=== PATIENT | male | born 1960 | race Caucasian/White ===

== ENCOUNTER 2019-04-29 22:38 | Inpatient (IN) | payer MEDICAID ==
--- NOTE | 2019-04-29 23:18 | ED Physician Chart ---
ED Chief Complaint/HPI - Patient Information Date Seen:: 04/29/19 Time Seen:: 23:13 Chief Complaint:: Dysuria and right flank pain History of Present Illness:: 58 yo male with history of bilateral flank pain and subsequent passing of a kidney stone 5 months ago. Pt did not seek medical treatment at that time. About 3 days ago, pt developed urinary burning sensation, urinary frequency, right scrotal pain, redness and swelling. Pt noticed pink urine intermittently. Pt also had fever and chills. Allergies:: Allergies Allergy/AdvReac Type Severity Reaction Status Date / Time No Known Allergies Allergy Verified 04/29/19 22:51 Vitals:: Vital Signs - 8 hr 04/29/19 22:40 Temp 98.4 F HR 105 RR 18 BP 105/75 O2 Sat % 97 ED Review of Systems - Review of Systems General/Constitutional: Fever, Chills Skin: No rash Head: No headache Eyes: No pain ENT: No nasal drainage Neck: No neck pain Cardio Vascular: No chest pain Pulmonary: No SOB GI: Nausea, No vomiting G/U: Dysuria, Frequency, Hematuria Musculoskeletal: No bone or joint pain Neurological: No focal symptoms ED Past Medical History - Past Medical History Past Medical History: Other (Kidney stone) Social History: Smoker, No Alcohol, Illicit Drug Use (majuana, methamphetamine) Surgical History: Appendectomy Family Medical History - Family Member Mother History Unknown: Yes ED Physical Exam - Physical Examination General/Constitutional: Awake, Alert Head: Atraumatic Eyes: PERRL, EOMI Skin: No ecchymosis ENMT: Nasal exam nl Neck: No nuchal rigidity Respiratory: Clear to Auscultation Cardio Vascular: RRR, No murmur, gallop, rubs, NL S1 S2 Other GI comments:: RLQ tenderness : No CVA tenderness Other comments:: Swelling, erythema and tenderness of right scrotum Extremities: normal strength in all extremities Neuro/Psych: No focal deficits ED Labs/Radiology/EKG Results - Lab Results Results: Laboratory Last Values WBC 20.2 Th/cmm (4.8-10.8) H* 04/29/19 23:00 RBC 4.70 Mil/cmm (4.30-5.70) 04/29/19 23:00 Hgb 13.6 gm/dL (12-16) 04/29/19 23:00 Hct 40.4 % (41.0-60) L 04/29/19 23:00 MCV 86.0 fl (80-99) 04/29/19 23:00 MCH 28.9 pg (26.0-30.0) 04/29/19 23: MCHC Differential 33.6 pg (28.0-36.0) 04/29/19 23:00 RDW 13.3 % (11.5-20.0) 04/29/19: Plt Count 746 Th/cmm (150-400) H 04/29/19 23:00 MPV 8.2 fl 04/29/19 23:00 Add Manual Diff YES 04/29/19: Band Neutrophils % 1 % (0-10) 04/29/19: Neutrophils (Manual) 76 % (40-80) 04/29/19 23:00 Lymphocytes 19 % (20-50) L 04/29/19: Monocytes 4 % (2-10) 04/29/19 23:00 Platelet Estimate INCREASED PLATELETS (NORMAL) 04/29/19 23:00 Sodium 133 mEq/L (136-145) L 04/29/19 23:00 Potassium 4.4 mEq/L (3.5-5.1) 04/29/19 23:00 Chloride 95 mEq/L (98-107) L 04/29/19 23:00 Carbon Dioxide 29.2 mEq/L (21.0-31.0) 04/29/19 23: Anion Gap 13.2 (7.0-16.0) 04/29/19 23: BUN 13 mg/dL (7-25) 04/29/19 23: Creatinine 1.2 mg/dL (0.7-1.3) 04/29/19 23:00 Est GFR ( Amer) > 60.0 ml/min (>90) 04/29/19: Est GFR (Non-Af Amer) > 60.0 ml/min 04/29/19 23: BUN/Creatinine Ratio 10.8 04/29/19 23: Glucose 105 mg/dL (70-105) 04/29/19 23: Whole Bld Lactic Acid 1.39 mmol/L (0.60-1.99) 04/29/19 23:50 Calcium 9.2 mg/dL (8.6-10.3) 04/29/19 23:00 Total Bilirubin 0.3 mg/dL (0.3-1.0) 04/29/19 23:00 AST 18 U/L (13-39) 04/29/19 23:00 ALT 24 U/L (7-52) 04/29/19 23:00 Alkaline Phosphatase 116 U/L (34-104) H 04/29/19 23:00 Total Protein 7.6 gm/dL (6.0-8.3) 04/29/19 23:00 Albumin 3.3 gm/dL (4.2-5.5) L 04/29/19 23:00 Globulin 4.3 gm/dL 04/29/19 23:00 Albumin/Globulin Ratio 0.8 (1.0-1.8) L 04/29/19 23:00 Urine Source MIDSTREAM 04/29/19 22:40 Urine Color YELLOW 04/29/19 22:40 Urine Clarity HAZY (CLEAR) 04/29/19 22:40 Urine pH 6.5 (4.6 - 8.0) 04/29/19 22:40 Ur Specific [place] 1.010 (1.005-1.030) 04/29/19 22:40 Urine Protein 30 mg/dL (NEGATIVE) H 04/29/19 22:40 Urine Glucose (UA) NEGATIVE mg/dL (NEGATIVE) 04/29/19 22:40 Urine Ketones NEGATIVE mg/dL (NEGATIVE) 04/29/19 22:40 Urine Blood LARGE (NEGATIVE) H 04/29/19 22:40 Urine Nitrate POSITIVE (NEGATIVE) H 04/29/19 22:40 Urine Bilirubin NEGATIVE (NEGATIVE) 04/29/19 22:40 Urine Urobilinogen 4.0 E.U./dL (0.2 - 1.0) H 04/29/19 22:40 Ur Leukocyte Esterase LARGE (NEGATIVE) H 04/29/19 22:40 Urine RBC 2-5 /hpf (0-5) H 04/29/19 22:40 Urine WBC 50-100 /hpf (0-5) H 04/29/19 22:40 Ur Epithelial Cells RARE /lpf (FEW) 04/29/19 22:40 Urine Bacteria MANY /hpf (NONE SEEN) H 04/29/19 22:40 Urine Opiates Screen NEGATIVE (NEGATIVE) 04/29/19 22:40 Urine Methadone Screen NEGATIVE (NEGATIVE) 04/29/19 22:40 Ur Barbiturates Screen NEGATIVE (NEGATIVE) 04/29/19 22:40 Ur Tricyclics Screen NEGATIVE (NEGATIVE) 04/29/19 22:40 Ur Phencyclidine Scrn NEGATIVE (NEGATIVE) 04/29/19 22:40 Amphetamines Screen POSITIVE (NEGATIVE) H 04/29/19 22:40 U Methamphetamines Scrn POSITIVE (NEGATIVE) H 04/29/19 22:40 U Benzodiazepines Scrn NEGATIVE (NEGATIVE) 04/29/19 22:40 U Cocaine Metab Screen NEGATIVE (NEGATIVE) 04/29/19 22:40 U Cannabinoids Screen NEGATIVE (NEGATIVE) 04/29/19 22:40 - Radiology Results Results: CT abdomen/pelvis without contrast: 5mm x 8mm calculus in the distal left ureter just above level of the left ureterovesical junction with mild left ureteral dilatation without significant hydronephrosis. Mild bilateral perinephric stranding. No renal calculi identified. Asymmetric soft tissue thickening and stranding at the region of right inguinal canal which may reflect inflammatory process. Evidence of right scrotal low density suggesting hydrocele. Testicular ultrasound: right hydrocele, right epididymitis, increased color flow of right testis and epididymis. ED Assessment - Assessment General Assessment: Left ureteral calculus Mild left obstructive uropathy Sepsis Urinary tract infection Right epididymitis Right hydrocele Hyponatremia Substance abuse Assessment/Comments:: CBC, CMP, UA, urine drug screen CT abdomen/pelvis wo contrast Scrotum U/S Empirical Ceftriaxone IV NS bolus IV Toradol IV Morphine IV Admit to med surg ED Septic Shock - . Is Septic Shock (SBP<90, OR Lactate>4 mmol\L) present?: No - <6hrs of presentation: Vital Signs: Vital Signs - 8 hr 04/29/19 22:40 Temp 98.4 F HR 105 RR 18 BP 105/75 O2 Sat % 97 ED Reassessment (Disposition) - Reassessment Reassessment Condition:: Improved - Patient Disposition Discharge/Transfer:: Acute Care w/in this hosp Admitting Medical Physician:: Fortunato Alas
[2019-04-29 23:36] LABS: HEMATOCRIT 40.4 % (41.0-60); HEMOGLOBIN 13.6 gm/dL (12-16); MEAN CORPUSCULAR HEMOGLOBIN 28.9 pg (26.0-30.0); MEAN CORPUSCULAR HGB CONC 33.6 pg (28.0-36.0); PLATELET COUNT 746 Th/cmm (150-400); RED CELL DISTRIBUTION WIDTH 13.3 % (11.5-20.0)
[2019-04-29 23:40] LABS: WHITE BLOOD COUNT 20.2 Th/cmm (4.8-10.8)
[2019-04-29] MEDS ORDERED: cefTRIAXone 1 GM in Sodium Chloride 0.9% 50 ML IV ONE (23:43)
[2019-04-29] MEDS ORDERED: Sodium Chloride 0.9% 1,000 ML IV ONE (23:44)
[2019-04-29 23:51] LABS: ALB/GLOB RATIO 0.8 (1.0-1.8); ALBUMIN 3.3 gm/dL (4.2-5.5); ALKALINE PHOSPHATASE 116 U/L (34-104); ANION GAP 13.2 (7.0-16.0); BILIRUBIN,TOTAL 0.3 mg/dL (0.3-1.0); BUN - UREA NITROGEN 13 mg/dL (7-25); CALCIUM SERUM 9.2 mg/dL (8.6-10.3); CARBON DIOXIDE 29.2 mEq/L (21.0-31.0); CHLORIDE 95 mEq/L (98-107); CREATININE - SERUM 1.2 mg/dL (0.7-1.3); GFR AFRICAN-AMERICAN > 60.0 ml/min (>90); GFR NON AFRICAN-AMERICAN > 60.0 ml/min; GLUCOSE 105 mg/dL (70-105); POTASSIUM SERUM 4.4 mEq/L (3.5-5.1); SGOT 18 U/L (13-39); SGPT/ALT 24 U/L (7-52); SODIUM SERUM 133 mEq/L (136-145); TOTAL PROTEIN,SERUM 7.6 gm/dL (6.0-8.3)
[2019-04-30 00:02] LABS: BAND NEUTROPHILE 1 % (0-10); LYMPHOCYTE 19 % (20-50); MONOCYTE 4 % (2-10); NEUTROPHILS 76 % (40-80); PLATELET ESTIMATE INCREASED PLATELETS (NORMAL)
[2019-04-30 00:03] LABS: URINE SOURCE MIDSTREAM
[2019-04-30 00:06] LABS: URINE BILIRUBIN NEGATIVE (NEGATIVE); URINE BLOOD LARGE (NEGATIVE); URINE GLUCOSE (UA) NEGATIVE (NEGATIVE); URINE KETONE NEGATIVE (NEGATIVE); URINE LEUKOCYTE ESTERASE LARGE (NEGATIVE); URINE MICROSCOPIC INDICATED? YES; URINE NITRATE POSITIVE (NEGATIVE); URINE PH 6.5 (4.6 - 8.0); URINE PROTEIN 30 mg/dL (NEGATIVE)
[2019-04-30 00:18] LABS: URINE CLARITY HAZY (CLEAR); URINE COLOR YELLOW
[2019-04-30 00:21] LABS: URINE BACTERIA MANY /hpf (NONE SEEN); URINE EPITHELIAL CELLS RARE /lpf (FEW); URINE WBC 50-100 /hpf (0-5)
[2019-04-30 00:23] LABS: AMPHETAMINE URINE POSITIVE (NEGATIVE); BARBITURATES URINE NEGATIVE (NEGATIVE); BENZODIAZEPINES QUAL URINE NEGATIVE (NEGATIVE); CANNABINOID THC NEGATIVE (NEGATIVE); COCAINE METABOLITE QUAL URINE NEGATIVE (NEGATIVE); METHADONE URINE NEGATIVE (NEGATIVE); METHAMPHETAMINES QUAL URINE POSITIVE (NEGATIVE); OPIATES (MORPHINE) QUAL. URINE NEGATIVE (NEGATIVE); PHENCYCLIDINE (PCP) URINE NEGATIVE (NEGATIVE); TRICYCLICS (TCA) QUAL. URINE NEGATIVE (NEGATIVE)
[2019-04-30] MEDS ORDERED: Morphine Sulfate 2 mg/mL 1mL Syr IV STA (02:51)
[2019-04-30] MEDS ORDERED: Morphine Sulfate 2 mg/mL 1mL Syr ONE (03:52)
[2019-04-30] MEDS ORDERED: HYDROmorphone 1 mg/mL 1mL Syr IVP PRN (06:36)
--- NOTE | 2019-04-30 08:33 | History and Physical ---
History of Present Illness - HPI Chief Complaint: Dysuria and costal pain HPI: Patient refer that 3 days ago started withy Dysuria, left costal pain, chills and hematuria. Reason why he came to ER. In ER [id number] was found Increased WBC and abdominal CT showed an a calculus in left ureter. Vital Signs: Last Vital Signs Temp 98.9 F 04/30/19 06:06 Pulse 89 04/30/19 06:06 Resp 20 04/30/19 06:55 BP 123/79 04/30/19 06:06 Pulse Ox 98 04/30/19 06:06 Past Medical History Cardiovascular: Report: No Pertinent Hx Pulmonary: Report: No Pertinent Hx [employer]IDE [employer]: Report: No Pertinent Hx GI: Report: No Pertinent Hx Psych: Report: Addictions, Other (He uses Marijuana and amphetamines.) Musculoskeletal: Report: Low Back Pain Rheumatologic: Report: No pertinent Hx Infectious Disease: Report: No Pertinent Hx Renal/: Report: No Pertinent Hx Endocrine: Report: No Pertinent Hx Dermatology: Report: No Pertinent Hx - Past Surgical History Past Surgical History: No pertinent Hx Family Medical History - Family Member Mother History Unknown: Yes Social History Smoke: No Alcohol: Rare Drugs: Crystal Meth, Marijuana Lives: With Family Domestic Violence: Negative - Medications Home Medications: Home Medication Medication Instructions Recorded Type NK [No Home Meds] 04/29/19 History - Allergies Allergies/Adverse Reactions: Allergies Allergy/AdvReac Type Severity Reaction Status Date / Time No Known Allergies Allergy Verified 04/29/19 22:51 Review of Systems - Review of Systems Constitutional: Report: Fever, Chills, Weakness Eyes: Report: No Significant ENT: Report: No Significant Respiratory: Report: No Significant Cardiovascular: Report: No Significant Gastrointestinal: Report: No Significant Genitourinary: Report: Dysuria, Frequency Musculoskeletal: Report: No Significant Skin: Report: No Significant Neurological: Report: Weakness Physical Exam - Physical Exam HEENT: Report: Ears Nose Throat within normal limits Neck: Report: Within normal limits Cardiovascular Systems: Report: Regular, Rate and Rhythm Respiratory: Report: Breath Sounds are within normal limits Abdomen: Report: Non-tender to palpation Back: Report: CVA Tenderness noted on the left flank Extremities: Report: Non-tender to palpation. Skin: Report: Color of skin is within normal limits, Warm, Dry Neuro/Psych: Report: Mood affect is within normal limits - Lab Results All Lab Results last 24 hours: Laboratory Results - last 24 hr 04/29/19 04/29/19 04/29/19 22:40 22:40 23:00 WBC 20.2 H* RBC 4.70 Hgb 13.6 Hct 40.4 L MCV 86.0 MCH 28.9 MCHC Differential 33.6 RDW 13.3 Plt Count 746 H MPV 8.2 Add Manual Diff YES Band Neutrophils % 1 Neutrophils (Manual) 76 Lymphocytes 19 L Monocytes 4 Platelet Estimate INCREASED PLATELETS Sodium Potassium Chloride Carbon Dioxide Anion Gap BUN Creatinine Est GFR ( Amer) Est GFR (Non-Af Amer) BUN/Creatinine Ratio Glucose Whole Bld Lactic Acid Calcium Total Bilirubin AST ALT Alkaline Phosphatase Total Protein Albumin Globulin Albumin/Globulin Ratio Urine Source MIDSTREAM Urine Color YELLOW Urine Clarity HAZY Urine pH 6.5 Ur Specific [place] 1.010 Urine Protein 30 H Urine Glucose (UA) NEGATIVE Urine Ketones NEGATIVE Urine Blood LARGE H Urine Nitrate POSITIVE H Urine Bilirubin NEGATIVE Urine Urobilinogen 4.0 H Ur Leukocyte Esterase LARGE H Urine RBC 2-5 H Urine WBC 50-100 H Ur Epithelial Cells RARE Urine Bacteria MANY H Urine Opiates Screen NEGATIVE Urine Methadone Screen NEGATIVE Ur Barbiturates Screen NEGATIVE Ur Tricyclics Screen NEGATIVE Ur Phencyclidine Scrn NEGATIVE Amphetamines Screen POSITIVE H U Methamphetamines Scrn POSITIVE H U Benzodiazepines Scrn NEGATIVE U Cocaine Metab Screen NEGATIVE U Cannabinoids Screen NEGATIVE 04/29/19 04/29/19 23:00 23:50 WBC RBC Hgb Hct MCV MCH MCHC Differential RDW Plt Count MPV Add Manual Diff Band Neutrophils % Neutrophils (Manual) Lymphocytes Monocytes Platelet Estimate Sodium 133 L Potassium 4.4 Chloride 95 L Carbon Dioxide 29.2 Anion Gap 13.2 BUN 13 Creatinine 1.2 Est GFR ( Amer) > 60.0 Est GFR (Non-Af Amer) > 60.0 BUN/Creatinine Ratio 10.8 Glucose 105 Whole Bld Lactic Acid 1.39 Calcium 9.2 Total Bilirubin 0.3 AST 18 ALT 24 Alkaline Phosphatase 116 H Total Protein 7.6 Albumin 3.3 L Globulin 4.3 Albumin/Globulin Ratio 0.8 L Urine Source Urine Color Urine Clarity Urine pH Ur Specific [place] Urine Protein Urine Glucose (UA) Urine Ketones Urine Blood Urine Nitrate Urine Bilirubin Urine Urobilinogen Ur Leukocyte Esterase Urine RBC Urine WBC Ur Epithelial Cells Urine Bacteria Urine Opiates Screen Urine Methadone Screen Ur Barbiturates Screen Ur Tricyclics Screen Ur Phencyclidine Scrn Amphetamines Screen U Methamphetamines Scrn U Benzodiazepines Scrn U Cocaine Metab Screen U Cannabinoids Screen - Assessment Assessment: Patient is awake, alert, calm in no acute distress. Dx Sepsis, UTI, Left obstructive Uropathy, Right Epididymites, Right Hydrocele, Hyponatremia, Substance abuse. - Plan Plan: [id number] is in IV NS, IV AB, Pain control, Regular diet, consult with Urology requested. Will continue to monitor.
--- NOTE | 2019-04-30 08:57 | Diagnostic Imaging Report ---
CT abdomen and pelvis without intravenous contrast Indication: Right flank pain, kidney stones Comparison: Scrotal ultrasound the same day, Technique: Axial images were obtained from the lung bases to the bilateral proximal femurs without IV contrast. Coronal reconstructions were made. total DLP: [id number], [id number] FINDINGS: Hypoventilatory atelectatic changes of the lung bases are noted. Small areas of basal pleural nodularity are noted measuring up to 6 mm. Evaluation of the solid organs is limited due to lack of IV contrast. No evidence of focal hepatic lesions. No focal splenic or pancreatic lesions. No focal adrenal lesions. There is mild bilateral perinephric inflammatory changes. There is a 7 mm stone of the left distal ureter just above the left UVJ. No hydronephrosis. Pelvic phleboliths are noted. There is moderate stool throughout the colon with joint gas-filled loops of bowel. The appendix is not well-visualized. There appears to be a hydrocele inflammatory changes along the scrotal region. Inflammatory changes in the inguinal regions are noted with mildly prominent bilateral inguinal lymph nodes right greater than left. No gross air pockets identified. No free fluid or free air. There is mild atherosclerosis. The osseous structures demonstrate no acute abnormalities. Small bone island of the pelvis are noted. There is a large fat density mass which appears to be is likely located between the right gluteal medius and the gluteal minimus muscles measuring 8.0 x 2 cm. IMPRESSION: 7 mm stone of the left ureterovesicular junction. No significant hydronephrosis or hydroureter identified at this time. Clinical correlation recommended. Bilateral nonspecific perinephric inflammatory changes. Infectious process cannot be excluded. Inflammatory changes along the scrotal region including the bilateral inguinal regions with mildly prominent inguinal lymph nodes, right greater than left. There also appears to be hydroceles. Findings suggest infectious or inflammatory process. Recommend clinical correlation and follow-up. Appendix is not visualized. Small areas of nodularity of the lung bases measuring up to 6 mm with along the pleura possibly due to chronic changes and fibrotic changes. Correlation with old exams with be helpful. Alternately follow-up repeat CT in 4-6 months is suggested. Large fat 8 x 2 cm density mass appears to be located likely between the right gluteus medius and gluteus minimus muscles most outside sales representative of a lipoma. Recommend follow-up surveillance to ensure that stability.
--- NOTE | 2019-04-30 09:06 | Diagnostic Imaging Report ---
Portable chest x-ray History: Cough, preoperative Allowing for portable technique the heart size is normal. No focal pulmonary parenchymal processes. No hilar or mediastinal abnormalities. Impression: No acute abnormalities.
[2019-04-30] MEDS: Sodium Chloride 0.9% 1,000 ML IV SCH ×2 (09:12→18:24)
--- NOTE | 2019-04-30 09:16 | Diagnostic Imaging Report ---
Testicular/scrotal ultrasound HISTORY: Pain, erythema The right testis measures 3.9 x 2.7 x 3.0 cm. No focal intratesticular lesions are seen. Increased vascular flow noted. The right epididymis appears enlarged. Inflammatory change (epididymitis) cannot be excluded. There is a moderate complex right-sided hydrocele. The left testis measures 3.6 x 2.6 x 2.5 cm. No focal parenchymal lesions. Normal vascular flow. The left epididymis appears normal. IMPRESSION: 1. No focal intratesticular lesions 2. Increased vascular flow within the right testis which may reflect inflammatory change. 3. Enlarged right epididymis which may be associated with inflammatory change (minus). 4. Complex right hydrocele consistent with inflammatory sequelae.
[2019-04-30 10:37] LABS: INR 1.06 (0.5-1.4)
[2019-04-30] MEDS: HYDROmorphone 1 mg/mL 1mL Syr IVP PRN ×2 (13:56→20:37)
[2019-05-01] MEDS: HYDROmorphone 1 mg/mL 1mL Syr IVP PRN ×2 (04:28→12:10)
[2019-05-01 05:47] LABS: % BASOPHILS 0.3 % (0.0-2.0); % EOSINOPHILS 0.5 % (0.0-5.0); % LYMPHOCYTES 13.6 % (20.0-50.0); % MONOCYTES 7.8 % (2.0-10.0); % NEUTROPHILS 77.8 % (40.0-80.0); EOSINOPHILE ABSOLUTE 0.1 Th/cmm (0.1-0.4); HEMATOCRIT 38.3 % (41.0-60); HEMOGLOBIN 12.6 gm/dL (12-16); LYMPHOCYTE ABSOLUTE 2.2 Th/cmm (1.5-3.0); MEAN CELL VOLUME 86.1 fl (80-99); MEAN CORPUSCULAR HEMOGLOBIN 28.3 pg (26.0-30.0); MEAN CORPUSCULAR HGB CONC 32.9 pg (28.0-36.0); MONOCYTE ABSOLUTE 1.3 Th/cmm (0.3-1.0); NEUTROPHILE ABSOLUTE 12.6 Th/cmm (1.8-8.0); PLATELET COUNT 630 Th/cmm (150-400); RED BLOOD COUNT 4.44 Mil/cmm (4.30-5.70); RED CELL DISTRIBUTION WIDTH 13.3 % (11.5-20.0)
[2019-05-01 05:50] LABS: WHITE BLOOD COUNT 16.2 Th/cmm (4.8-10.8)
[2019-05-01 06:14] LABS: ANION GAP 13.4 (7.0-16.0); BUN - UREA NITROGEN 16 mg/dL (7-25); CHLORIDE 96 mEq/L (98-107); CREATININE - SERUM 1.2 mg/dL (0.7-1.3); GFR AFRICAN-AMERICAN > 60.0 ml/min (>90); GFR NON AFRICAN-AMERICAN > 60.0 ml/min; GLUCOSE 119 mg/dL (70-105); POTASSIUM SERUM 4.4 mEq/L (3.5-5.1); SODIUM SERUM 132 mEq/L (136-145)
--- NOTE | 2019-05-01 08:48 | General Progress Note ---
Subjective - Review of Systems Service Date: 05/01/19 Subjective: I fell better Objective - Results Result Diagrams: 05/01/19 05:25 05/01/19 05:25 Recent Labs: Laboratory Last Values WBC 16.2 Th/cmm (4.8-10.8) H 05/01/19 05:25 RBC 4.44 Mil/cmm (4.30-5.70) 05/01/19 05:25 Hgb 12.6 gm/dL (12-16) 05/01/19 05:25 Hct 38.3 % (41.0-60) L 05/01/19 05:25 MCV 86.1 fl (80-99) 05/01/19 05:25 MCH 28.3 pg (26.0-30.0) 05/01/19 05:25 MCHC Differential 32.9 pg (28.0-36.0) 05/01/19 05:25 RDW 13.3 % (11.5-20.0) 05/01/19 05:25 Plt Count 630 Th/cmm (150-400) H 05/01/19 05:25 MPV 7.8 fl 05/01/19 05:25 Add Manual Diff YES 04/29/19 23:00 Neutrophils % 77.8 % (40.0-80.0) 05/01/19 05:25 Band Neutrophils % 1 % (0-10) 04/29/19 23:00 Lymphocytes % 13.6 % (20.0-50.0) L 05/01/19 05:25 Monocytes % 7.8 % (2.0-10.0) 05/01/19 05:25 Eosinophils % 0.5 % (0.0-5.0) 05/01/19 05:25 Basophils % 0.3 % (0.0-2.0) 05/01/19 05:25 Neutrophils (Manual) 76 % (40-80) 04/29/19 23:00 Lymphocytes 19 % (20-50) L 04/29/19 23:00 Monocytes 4 % (2-10) 04/29/19 23:00 Platelet Estimate INCREASED PLATELETS (NORMAL) 04/29/19 23:00 PT 11.0 SECONDS (9.5-11.5) 04/30/19 09:15 INR 1.06 (0.5-1.4) 04/30/19 09:15 PTT (Actin FS) 30.2 SECONDS (26.0-38.0) 04/30/19 09:15 Sodium 132 mEq/L (136-145) L 05/01/19 05:25 Potassium 4.4 mEq/L (3.5-5.1) 05/01/19 05:25 Chloride 96 mEq/L (98-107) L 05/01/19 05:25 Carbon Dioxide 27.0 mEq/L (21.0-31.0) 05/01/19 05:25 Anion Gap 13.4 (7.0-16.0) 05/01/19 05:25 BUN 16 mg/dL (7-25) 05/01/19 05:25 Creatinine 1.2 mg/dL (0.7-1.3) 05/01/19 05:25 Est GFR ( Amer) > 60.0 ml/min (>90) 05/01/19 05:25 Est GFR (Non-Af Amer) > 60.0 ml/min 05/01/19 05:25 BUN/Creatinine Ratio 13.3 05/01/19 05:25 Glucose 119 mg/dL (70-105) H 05/01/19 05:25 Whole Bld Lactic Acid 1.80 mmol/L (0.60-1.99) 04/30/19 09:15 Calcium 9.0 mg/dL (8.6-10.3) 05/01/19 05:25 Total Bilirubin 0.3 mg/dL (0.3-1.0) 04/29/19 23:00 AST 18 U/L (13-39) 04/29/19 23:00 ALT 24 U/L (7-52) 04/29/19 23:00 Alkaline Phosphatase 116 U/L (34-104) H 04/29/19 23:00 Total Protein 7.6 gm/dL (6.0-8.3) 04/29/19 23:00 Albumin 3.3 gm/dL (4.2-5.5) L 04/29/19 23:00 Globulin 4.3 gm/dL 04/29/19 23:00 Albumin/Globulin Ratio 0.8 (1.0-1.8) L 04/29/19 23:00 Urine Source MIDSTREAM 04/29/19 22:40 Urine Color YELLOW 04/29/19 22:40 Urine Clarity HAZY (CLEAR) 04/29/19 22:40 Urine pH 6.5 (4.6 - 8.0) 04/29/19 22:40 Ur Specific [place] 1.010 (1.005-1.030) 04/29/19 22:40 Urine Protein 30 mg/dL (NEGATIVE) H 04/29/19 22:40 Urine Glucose (UA) NEGATIVE mg/dL (NEGATIVE) 04/29/19 22:40 Urine Ketones NEGATIVE mg/dL (NEGATIVE) 04/29/19 22:40 Urine Blood LARGE (NEGATIVE) H 04/29/19 22:40 Urine Nitrate POSITIVE (NEGATIVE) H 04/29/19 22:40 Urine Bilirubin NEGATIVE (NEGATIVE) 04/29/19 22:40 Urine Urobilinogen 4.0 E.U./dL (0.2 - 1.0) H 04/29/19 22:40 Ur Leukocyte Esterase LARGE (NEGATIVE) H 04/29/19 22:40 Urine RBC 2-5 /hpf (0-5) H 04/29/19 22:40 Urine WBC 50-100 /hpf (0-5) H 04/29/19 22:40 Ur Epithelial Cells RARE /lpf (FEW) 04/29/19 22:40 Urine Bacteria MANY /hpf (NONE SEEN) H 04/29/19 22:40 Urine Opiates Screen NEGATIVE (NEGATIVE) 04/29/19 22:40 Urine Methadone Screen NEGATIVE (NEGATIVE) 04/29/19 22:40 Ur Barbiturates Screen NEGATIVE (NEGATIVE) 04/29/19 22:40 Ur Tricyclics Screen NEGATIVE (NEGATIVE) 04/29/19 22:40 Ur Phencyclidine Scrn NEGATIVE (NEGATIVE) 04/29/19 22:40 Amphetamines Screen POSITIVE (NEGATIVE) H 04/29/19 22:40 U Methamphetamines Scrn POSITIVE (NEGATIVE) H 04/29/19 22:40 U Benzodiazepines Scrn NEGATIVE (NEGATIVE) 04/29/19 22:40 U Cocaine Metab Screen NEGATIVE (NEGATIVE) 04/29/19 22:40 U Cannabinoids Screen NEGATIVE (NEGATIVE) 04/29/19 22:40 - Physical Exam Vitals and I&O: Vital Signs Temp 97.0 F 05/01/19 08:11 Pulse 95 05/01/19 08:11 Resp 19 05/01/19 08:11 BP 122/83 05/01/19 08:11 Pulse Ox 96 05/01/19 08:11 Intake & Output 04/30/19 05/01/19 05/01/19 18:59 06:59 18:59 Intake Total 1278 Output Total 1025 Balance 1278 -1025 Weight (lbs) 74.888 kg 74.843 kg Intake: Intake, IV Amount 978 Piperacillin Sodium/ 150 Tazobact 3.375 gm In Sodium Chloride 0.9% 50 ml @ 100 mls/hr IV Q6HR [facility] Rx#:[id number] Sodium Chloride 0.9% 1, 828 000 ml @ 90 mls/hr IV . Q11H7M [facility] Rx#:[id number] Oral 300 Output: Urine 1025 Other: # Voids 3 # Bowel Movements 1 0 Weight Source Bedscale Bedscale Active Medications: Current Medications Furosemide (Lasix) 20 mg PO DAILY [facility] Stop: 06/29/19 08:59 Last Admin: 04/30/19 09:12 Dose: 20 mg Hydromorphone HCl (Dilaudid) 1 mg IVP Q6HR PRN PRN Reason: Moderate to Severe Pain Stop: 06/29/19 06:35 Last Admin: 05/01/19 04:28 Dose: 1 mg Piperacillin Sod/Tazobactam (Sod 3.375 gm/ Sodium Chloride) 50 mls @ 100 mls/ hr IV Q6HR [facility] Stop: 06/29/19 07:59 Last Admin: 05/01/19 06:23 Dose: Not Given Potassium Chloride 10 meq/ (Sodium Chloride) 1,005 mls @ 150 mls/hr IV .Q6H42M [facility] Stop: 06/29/19 13:59 Last Admin: 04/30/19 16:58 Dose: 150 mls/hr Miscellaneous (Vancomycin Iv Per Pharmacy) 1 ea MC DAILY [facility] Stop: 05/06/19 08:59 Tamsulosin HCl (Flomax) 0.4 mg PO DAILY [facility] Stop: 06/29/19 08:59 Last Admin: 04/30/19 09:12 Dose: 0.4 mg General: Alert, No acute distress HEENT: Atraumatic Neck: Supple Cardiovascular: Regular rate Lungs: Clear to auscultation Abdomen: Bowel sounds, Soft, Tender Extremities: Other (No edema) Neurological: Normal gait Psych/Mental Status: Mental status NL Assessment/Plan - Assessment Assessment: Patient is awake, alert, calm in no acute distress. WBC improved. Today he will have an uretro endoscopy. Dx Sepsis, UTI, Left obstructive Uropathy, Right Epididymites, Right Hydrocele, Hyponatremia, Substance abuse. - Plan Plan: [id number] is in IV NS, IV AB ( Vanco and Sozyn). Pain control, Regular diet, consult with Urology requested. Will continue to monitor.
[2019-05-01] MEDS ORDERED: fentaNYL Citrate 100 mcg/2mL Vial ONE (14:26)
[2019-05-01] MEDS ORDERED: Propofol **SURGERY USE ONLY** 20 ML IV ONE (14:48)
[2019-05-01] MEDS ORDERED: IOHEXOL 300mgI/mL 50 ML VIAL ONE (14:49)
[2019-05-01] MEDS ORDERED: Neostigmine 10mg/10mL Vial ONE (14:49)
--- NOTE | 2019-05-01 16:45 | Operative Report ---
DATE OF SURGERY: 05/01/2019 PREOPERATIVE DIAGNOSES: Left ureteral stone, not passed in spite of medical therapy with persistent pain. POSTOPERATIVE DIAGNOSIS. No evidence of stone. SURGEON: Eric Thornton M.D. NAME OF PROCEDURE: Cystoscopy, left ureteroscopy, left retrograde pyelogram with fluoroscopy and contrast. ANESTHESIA: General. INDICATIONS: The patient is a 58-year-old who came in with bilateral flank pain, right scrotal pain, history of stone disease, hematuria and dysuria. After the stone was noted on the CT scan and he failed medical therapy. The ureteroscopy was recommended. FINDINGS: Cystoscopy revealed soft stricture in the bulbous urethra, open prostatic fossa, some debris in the bladder and the retrograde revealed a filling defect in the lower ureter, but ureteroscopy did not show the stone anywhere all the way up to the kidney. No laser could be used and no stent was necessary. There was no complication or blood loss. DESCRIPTION OF PROCEDURE: The patient was brought to the operating room, prepped and draped in the dorsal lithotomy position after general anesthesia was induced. After dilating the meatus, the urethra and the bladder was scoped with a 30 and 70 degree lenses. Debris was noted in the bladder that was irrigated out. The left orifice was cannulated. Contrast was injected and a filling defect was noted near the lower end of the ureter. A Glidewire was passed into the kidney without any resistance and then a similarly second guidewire was passed for safety purposes. One of the wires was then loaded on the ureteroscope, which was then advanced over it into the ureter and advanced slowly all the way up to the kidney looking for the stone. I could not see the stone anywhere and went up and down the ureter twice without finding it and finally deciding to complete the procedure without need for any further intervention. Scope was removed and the bladder drained and the patient returned to recovery in stable condition. JOB# [id number]
--- NOTE | 2019-05-01 22:07 | Consultation ---
DATE OF CONSULTATION: 05/01/2019 UROLOGY CONSULT. REASON FOR CONSULTATION: Right scrotal pain and left ureteral stone. HISTORY OF PRESENT ILLNESS: The patient is a 58-year-old who came to the hospital with complaints of bilateral flank pain and passing a stone 5 months ago. He also expressed dysuria, some frequency and right-sided scrotal pain with swelling and pinkish urine off and on. He admitted to having fever and chills. This all started 3 days ago. He gives a strong history of stone disease over the last several years, passing few of them, sized about 5-7 mm each. Never had surgery so far. ALLERGIES: None. REVIEW OF SYSTEMS: Complained of fever and chills without skin rash, joint swelling, headache, or seizures. No nasal discharge or sore throat. Denies chest pain, coughing or shortness of breath. Had some nausea, but no vomiting. Did have dysuria, frequency, and hematuria. PAST MEDICAL HISTORY: 1. Stone disease. 2. Smoker. SOCIAL HISTORY: Currently without home. PAST SURGICAL HISTORY: Appendectomy. PHYSICAL EXAMINATION: GENERAL: On exam, he is awake, alert, oriented. He complains of being hungry. VITAL SIGNS: Temperature 97.7, heart rate 94, blood pressure 118/81. He had a temperature of 100.1 last night, but no other fever since admission. HEAD AND NECK: Normocephalic. Trachea central. Pupils equal and reactive. No jaundice. Thyroid and lymph nodes not palpable. Carotid bruit absent. CHEST: Symmetrical. LUNGS: Clear. No rales or rhonchi. HEART: Sounds normal in sinus rhythm, no murmur. ABDOMEN: Soft, nontender. No organomegaly, mass, or hernia. Both flanks mildly tender to percussion. GENITOURINARY: Scrotum, right side is swollen, erythematous and tender; left is normal. Penis uncircumcised. Meatus adequate. No skin rash or discharge from the tip. RECTAL: Deferred. EXTREMITIES: No edema or lymphadenopathy. NEUROLOGIC: Nonfocal. Moves all 4 limbs. LABORATORY DATA: White count 20.2 on admission, today 16.2; hemoglobin 12.6; no bands on the differential; platelets 630. PT, PTT are normal. Sodium 132, potassium 4.4, BUN 16, creatinine 1.2. Glucose 119, 103, 105. Lactic acid 1.80. Liver functions are normal except for mildly elevated alkaline phosphatase to 116. Urinalysis shows lots of blood and nitrites, and large amount of leukocyte esterase, 50-100 white cells and many bacteria. Urine toxicology screen positive for amphetamines. DIAGNOSTIC STUDIES: CT of the abdomen and pelvis shows a 7 mm stone in the left UVJ without hydronephrosis and there are no stones in the kidneys. There is bilateral perinephric inflammatory changes seen and there is inflammation in the bilateral inguinal regions with prominent nodes, right side greater than the left. There appears to be bilateral hydroceles as well. Scrotal ultrasound shows increased blood flow to the right testis, enlarged right epididymis, complex right hydrocele, all changes consistent with epididymal orchitis. Chest x-ray unremarkable. MICROBIOLOGY DATA: Blood culture, no growth. IMPRESSION: 1. Right epididymal orchitis. Recommend scrotal elevation, antibiotics, ice packs. 2. Left ureteral stone with minimal obstruction, but he has not passed it in spite of aggressive hydration and expulsive therapy. Recommend ureteroscopy with laser and possible stent insertion. The patient understands the procedure, risks and options and is willing to proceed. JOB# [id number]
[2019-05-02 06:23] LABS: % BASOPHILS 1.5 % (0.0-2.0); % EOSINOPHILS 0.7 % (0.0-5.0); % LYMPHOCYTES 17.9 % (20.0-50.0); % MONOCYTES 8.8 % (2.0-10.0); % NEUTROPHILS 71.1 % (40.0-80.0); BASOPHILE ABSOLUTE 0.2 Th/cumm (0-0.2); EOSINOPHILE ABSOLUTE 0.1 Th/cmm (0.1-0.4); HEMATOCRIT 38.6 % (41.0-60); HEMOGLOBIN 12.7 gm/dL (12-16); LYMPHOCYTE ABSOLUTE 2.3 Th/cmm (1.5-3.0); MEAN CELL VOLUME 85.1 fl (80-99); MEAN CORPUSCULAR HEMOGLOBIN 27.9 pg (26.0-30.0); MEAN CORPUSCULAR HGB CONC 32.8 pg (28.0-36.0); MONOCYTE ABSOLUTE 1.1 Th/cmm (0.3-1.0); NEUTROPHILE ABSOLUTE 8.9 Th/cmm (1.8-8.0); PLATELET COUNT 652 Th/cmm (150-400); RED BLOOD COUNT 4.54 Mil/cmm (4.30-5.70); RED CELL DISTRIBUTION WIDTH 13.3 % (11.5-20.0); WHITE BLOOD COUNT 12.6 Th/cmm (4.8-10.8)
[2019-05-02 07:39] LABS: ANION GAP 12.9 (7.0-16.0); BUN - UREA NITROGEN 19 mg/dL (7-25); CARBON DIOXIDE 27.9 mEq/L (21.0-31.0); CHLORIDE 98 mEq/L (98-107); CREATININE - SERUM 1.4 mg/dL (0.7-1.3); GFR AFRICAN-AMERICAN > 60.0 ml/min (>90); GFR NON AFRICAN-AMERICAN 55.7 ml/min; GLUCOSE 109 mg/dL (70-105); POTASSIUM SERUM 4.8 mEq/L (3.5-5.1); SODIUM SERUM 134 mEq/L (136-145)
[2019-05-02] MEDS ORDERED: Sodium Chloride 0.9% 1,000 ML IV SCH (08:30)
--- NOTE | 2019-05-02 08:38 | General Progress Note ---
Subjective - Review of Systems Service Date: 05/02/19 Subjective: I fell better Objective - Results Result Diagrams: 05/02/19 06:00 05/02/19 06:00 Recent Labs: Laboratory Last Values WBC 12.6 Th/cmm (4.8-10.8) H 05/02/19 06:00 RBC 4.54 Mil/cmm (4.30-5.70) 05/02/19 06:00 Hgb 12.7 gm/dL (12-16) 05/02/19 06:00 Hct 38.6 % (41.0-60) L 05/02/19 06:00 MCV 85.1 fl (80-99) 05/02/19 06:00 MCH 27.9 pg (26.0-30.0) 05/02/19 06:00 MCHC Differential 32.8 pg (28.0-36.0) 05/02/19 06:00 RDW 13.3 % (11.5-20.0) 05/02/19 06:00 Plt Count 652 Th/cmm (150-400) H 05/02/19 06:00 MPV 7.9 fl 05/02/19 06:00 Add Manual Diff YES 04/29/19 23:00 Neutrophils % 71.1 % (40.0-80.0) 05/02/19 06:00 Band Neutrophils % 1 % (0-10) 04/29/19 23:00 Lymphocytes % 17.9 % (20.0-50.0) L 05/02/19 06:00 Monocytes % 8.8 % (2.0-10.0) 05/02/19 06:00 Eosinophils % 0.7 % (0.0-5.0) 05/02/19 06:00 Basophils % 1.5 % (0.0-2.0) 05/02/19 06:00 Neutrophils (Manual) 76 % (40-80) 04/29/19 23:00 Lymphocytes 19 % (20-50) L 04/29/19 23:00 Monocytes 4 % (2-10) 04/29/19 23:00 Platelet Estimate INCREASED PLATELETS (NORMAL) 04/29/19 23:00 PT 11.0 SECONDS (9.5-11.5) 04/30/19 09:15 INR 1.06 (0.5-1.4) 04/30/19 09:15 PTT (Actin FS) 30.2 SECONDS (26.0-38.0) 04/30/19 09:15 Sodium 134 mEq/L (136-145) L 05/02/19 06:00 Potassium 4.8 mEq/L (3.5-5.1) 05/02/19 06:00 Chloride 98 mEq/L (98-107) 05/02/19 06:00 Carbon Dioxide 27.9 mEq/L (21.0-31.0) 05/02/19 06:00 Anion Gap 12.9 (7.0-16.0) 05/02/19 06:00 BUN 19 mg/dL (7-25) 05/02/19 06:00 Creatinine 1.4 mg/dL (0.7-1.3) H 05/02/19 06:00 Est GFR ( Amer) > 60.0 ml/min (>90) 05/02/19 06:00 Est GFR (Non-Af Amer) 55.7 ml/min 05/02/19 06:00 BUN/Creatinine Ratio 13.6 05/02/19 06:00 Glucose 109 mg/dL (70-105) H 05/02/19 06:00 POC Glucose 103 MG/DL (70 - 105) 05/01/19 12:58 Whole Bld Lactic Acid 1.80 mmol/L (0.60-1.99) 04/30/19 09:15 Calcium 9.0 mg/dL (8.6-10.3) 05/02/19 06:00 Total Bilirubin 0.3 mg/dL (0.3-1.0) 04/29/19 23:00 AST 18 U/L (13-39) 04/29/19 23:00 ALT 24 U/L (7-52) 04/29/19 23:00 Alkaline Phosphatase 116 U/L (34-104) H 04/29/19 23:00 Total Protein 7.6 gm/dL (6.0-8.3) 04/29/19 23:00 Albumin 3.3 gm/dL (4.2-5.5) L 04/29/19 23:00 Globulin 4.3 gm/dL 04/29/19 23:00 Albumin/Globulin Ratio 0.8 (1.0-1.8) L 04/29/19 23:00 Urine Source MIDSTREAM 04/29/19 22:40 Urine Color YELLOW 04/29/19 22:40 Urine Clarity HAZY (CLEAR) 04/29/19 22:40 Urine pH 6.5 (4.6 - 8.0) 04/29/19 22:40 Ur Specific [place] 1.010 (1.005-1.030) 04/29/19 22:40 Urine Protein 30 mg/dL (NEGATIVE) H 04/29/19 22:40 Urine Glucose (UA) NEGATIVE mg/dL (NEGATIVE) 04/29/19 22:40 Urine Ketones NEGATIVE mg/dL (NEGATIVE) 04/29/19 22:40 Urine Blood LARGE (NEGATIVE) H 04/29/19 22:40 Urine Nitrate POSITIVE (NEGATIVE) H 04/29/19 22:40 Urine Bilirubin NEGATIVE (NEGATIVE) 04/29/19 22:40 Urine Urobilinogen 4.0 E.U./dL (0.2 - 1.0) H 04/29/19 22:40 Ur Leukocyte Esterase LARGE (NEGATIVE) H 04/29/19 22:40 Urine RBC 2-5 /hpf (0-5) H 04/29/19 22:40 Urine WBC 50-100 /hpf (0-5) H 04/29/19 22:40 Ur Epithelial Cells RARE /lpf (FEW) 04/29/19 22:40 Urine Bacteria MANY /hpf (NONE SEEN) H 04/29/19 22:40 Urine Opiates Screen NEGATIVE (NEGATIVE) 04/29/19 22:40 Urine Methadone Screen NEGATIVE (NEGATIVE) 04/29/19 22:40 Ur Barbiturates Screen NEGATIVE (NEGATIVE) 04/29/19 22:40 Ur Tricyclics Screen NEGATIVE (NEGATIVE) 04/29/19 22:40 Ur Phencyclidine Scrn NEGATIVE (NEGATIVE) 04/29/19 22:40 Amphetamines Screen POSITIVE (NEGATIVE) H 04/29/19 22:40 U Methamphetamines Scrn POSITIVE (NEGATIVE) H 04/29/19 22:40 U Benzodiazepines Scrn NEGATIVE (NEGATIVE) 04/29/19 22:40 U Cocaine Metab Screen NEGATIVE (NEGATIVE) 04/29/19 22:40 U Cannabinoids Screen NEGATIVE (NEGATIVE) 04/29/19 22:40 - Physical Exam Vitals and I&O: Vital Signs Temp 98.0 F 05/02/19 08:00 Pulse 87 05/02/19 08:00 Resp 18 05/02/19 08:00 BP 114/75 05/02/19 08:00 Pulse Ox 95 05/02/19 08:00 Intake & Output 05/01/19 05/02/19 05/02/19 18:59 06:59 18:59 Intake Total 350 50 Balance 350 50 Intake: Intake, IV Amount 350 50 Piperacillin Sodium/ 100 50 Tazobact 3.375 gm In Sodium Chloride 0.9% 50 ml @ 100 mls/hr IV Q6HR [facility] Rx#:[id number] Vancomycin HCl 1 gm In 250 Sodium Chloride 0.9% 250 ml @ 165 mls/hr IV Q12H [facility] Rx#:[id number] Active Medications: Current Medications Hydromorphone HCl (Dilaudid) 1 mg IVP Q6HR PRN PRN Reason: Moderate to Severe Pain Stop: 06/29/19 06:35 Last Admin: 05/01/19 12:10 Dose: 1 mg Piperacillin Sod/Tazobactam (Sod 3.375 gm/ Sodium Chloride) 50 mls @ 100 mls/ hr IV Q6HR [facility] Stop: 06/29/19 07:59 Last Admin: 05/02/19 06:28 Dose: 100 mls/hr Vancomycin HCl 1 gm/ Sodium (Chloride) 250 mls @ 165 mls/hr IV Q12H [facility] Stop: 06/30/19 09:59 Last Admin: 05/01/19 22:25 Dose: 165 mls/hr Sodium Chloride (Nacl 0.9%) 1,000 mls @ 75 mls/hr IV .[id number] [facility] Stop: 07/01/19 08:29 Miscellaneous (Vancomycin Iv Per Pharmacy) 1 ea MC DAILY [facility] Stop: 05/06/19 08:59 Tamsulosin HCl (Flomax) 0.4 mg PO DAILY [facility] Stop: 06/29/19 08:59 Last Admin: 05/01/19 09:11 Dose: Not Given General: Alert, No acute distress HEENT: Atraumatic Neck: Supple Cardiovascular: Regular rate Lungs: Clear to auscultation Abdomen: Bowel sounds, Soft, Tender Extremities: Other (No edema) Neurological: Normal gait Psych/Mental Status: Mental status NL Assessment/Plan - Assessment Assessment: Patient is awake, alert, calm in no acute distress. WBC improved. He had uretro endoscopy and no stone was found. Dx Sepsis, UTI, Left obstructive Uropathy, Right Epididymites, Right Hydrocele, Hyponatremia, Substance abuse. - Plan Plan: [id number] is in IV NS, IV AB ( Vanco and Sozyn). Pain control, Regular diet, follow by Urology. Bladder US requested. Consult with case management requested. Will continue to monitor.
--- NOTE | 2019-05-02 09:04 | Diagnostic Imaging Report ---
Left retrograde ureteral pyelogram (intraoperative fluoroscopic images and services) HISTORY: Ureteroscopy Intraoperative fluoroscopic images and services were provided for facilitation of the procedure. 48 seconds fluoroscopy time was utilized.
[2019-05-02] MEDS: HYDROmorphone 1 mg/mL 1mL Syr IVP PRN (09:19)
--- NOTE | 2019-05-02 10:26 | Diagnostic Imaging Report ---
Ultrasound urinary bladder HISTORY: Urinary tract infection Evaluation of the urinary bladder is limited due to lack of distention. No obvious intraluminal abnormalities are seen. The patient was unable to void for assessment of post void residual. IMPRESSION: 1. Limited exam due to lack of urinary bladder distention. No obvious intraluminal abnormalities
--- NOTE | 2019-05-03 07:50 | Discharge Summary ---
General Discharge Summary - Discharge Summary Date of Admission: 04/29/09 Admitting Diagnosis: Sepsis, UTI, Left obstructive urophaty, Right epididymitis. Right Hydrocele Discharge Date: 05/02/19 Discharge Diagnosis: Sepsis, UTI, Left obstructive uropathy, Right epidydimitis , Right hydrocele, Hyponatremia, Drug abuse Laboratory Findings: Laboratory Results - last 24 hr 05/02/19 05/02/19 06:00 09:20 Sodium 134 L Potassium 4.8 Chloride 98 Carbon Dioxide 27.9 Anion Gap 12.9 BUN 19 Creatinine 1.4 H Est GFR ( Amer) > 60.0 Est GFR (Non-Af Amer) 55.7 BUN/Creatinine Ratio 13.6 Glucose 109 H Calcium 9.0 Vancomycin Trough 8.3 Hospital Course: Patient responded to treatment, he improved he passes the stone. Treatment: He was started in IV NS, IV AB, Pain control, Uretrocystoscopy done. Na improved. Disposition: PT DISCHARGED HOME Home Medications: Home Medication Medication Instructions Recorded Type NK [No Home Meds] 04/29/19 History Activity: As Tolerated (PCP and urology) Discharge Diet: Regular, Other Consults and Follow-Up: NO,PCP PER PATIENT [Other] not on staff,PCP is [Primary Care Provider] - Instructions: Kidney Stones, [id number], Urinary Tract Infection, Easy-to- Read, Rehydration, Adult
== END 2019-05-02 13:34 | disposition home or self-care (01) | DRG 720 ==
LOC: ER 22:38 → MSI 04-30 05:40
PROVIDERS: ADMIT General Practice; ATTEND General Practice
PROC: BT1F1ZZ Fluoroscopy of Left Kidney, Ureter and Bladder using Low Osmolar Contrast (ICD-10-PCS; principal; 2019-05-01)
DX: A41.9 Sepsis, unspecified organism (principal); E87.1 Hypo-osmolality and hyponatremia; N39.0 Urinary tract infection, site not specified; N13.9 Obstructive and reflux uropathy, unspecified; N45.1 Epididymitis; F19.10 Other psychoactive substance abuse, uncomplicated; F17.210 Nicotine dependence, cigarettes, uncomplicated; N43.3 Hydrocele, unspecified; N45.2 Orchitis; Z90.49 Acquired absence of other specified parts of digestive tract
CPT/HCPCS: 36415-UA; 71045-TC; 76000-TC; 76857-TC; 76870-TC; 80048-TC; 80053-TC; 80202-TC; 80307; 81001-TC; 81003-TC; 82948-90; 83605; 85007-TC; 85025-TC; 85610-TC; 93005; 96372; 96375; J0696; J1170; J1885; J2270; J2405; J2543; J2704; J2710; J3010; J3370; J3480; J7030; Q9967; X6258; Z7610